=== PATIENT | male | born 1950 | race Caucasian/White ===

== ENCOUNTER 2018-03-08 11:34 | Outpatient (CLI) | payer MEDICARE, OTHER ==
[~2018-03-08] VITALS: Ht 175.3 cm; Wt 122.5 kg
== END 2018-03-08 12:25 ==
LOC: PREOP 11:34
PROVIDERS: ATTEND Specialist
DX: Z01.818 Encounter for other preprocedural examination (principal); H25.12 Age-related nuclear cataract, left eye

== ENCOUNTER 2018-03-10 07:22 | Day surgery (SDC) | payer MEDICARE, OTHER ==
[~2018-03-10] VITALS: Ht 175.3 cm; Wt 122.5 kg
[2018-03-10 07:30] VITALS: BP 157/82
[2018-03-10] MEDS ORDERED: TERA10CA3 PO (07:33)
[2018-03-10] MEDS ORDERED: SAXA5TAB PO (07:33)
[2018-03-10] MEDS ORDERED: GABA800T2 PO (07:33)
[2018-03-10] MEDS ORDERED: ATOR80TA76 PO (07:33)
[2018-03-10] MEDS ORDERED: GLIP5TAB13 PO (07:33)
[2018-03-10] MEDS ORDERED: LISI10TA2 PO (07:33)
[2018-03-10] MEDS ORDERED: METF850T2 PO (07:33)
[2018-03-10] MEDS ORDERED: LIDOCAINE PF 1% 2 ML AMP IR PRN (07:45)
[2018-03-10] MEDS ORDERED: EPINEPHrine INJECTION 1 MG/ML AMP INJ ONE (07:45)
[2018-03-10] MEDS ORDERED: TIMOLOL MALEATE 0.5% 5 ML (TIMOPTIC) BTL OU PRN (07:45)
[2018-03-10] MEDS ORDERED: VANCOMYCIN/BSS (COMPOUNDED) 10 MG/ML SYR OP ONE (07:45)
[2018-03-10] MEDS ORDERED: POVIDONE (BETADINE) OPHTH SOLN 5% 30 ML OP ONE (07:45)
[2018-03-10] MEDS: TETRACAINE 0.5% OPHTH SOLN 4 ML BTL (SINGLE DOSE ONLY) OU PRN ×4 (07:46→07:56)
[2018-03-10] MEDS: CYCLOPENTOLATE 1% (CYCLOGYL) 2 ML DROPS OP SCH ×3 (07:49→07:56)
[2018-03-10] MEDS: PHENYLEPHRINE 10% OPHTH (NEO-SYN) 5 ML BTL OU SCH ×3 (07:49→07:56)
--- NOTE | 2018-03-10 08:19 | Ophthalmologist Pre-Op Note ---
Pre-Operative Progress Note H&P Reviewed The H&P was reviewed, patient examined and no changes noted. Date H&P Reviewed: Mar 10, 2018 Time H&P Reviewed: 08:19 Pre-Op Dx Cataract, Left Eye EDER BURGER MD Mar 10, 2018 08:19
--- NOTE | 2018-03-10 08:43 | Ophthalmology Operative Report ---
Cataract removal/placement IOL PREOPERATIVE DIAGNOSIS: Cataract Left Eye POSTOPERATIVE DIAGNOSIS: Cataract Left Eye PROCEDURE: Cataract removal and placement of posterior chamber implant, left eye SURGEON: Gokul Burger ANESTHESIA: Topical with sedation COMPLICATIONS: None ESTIMATED BLOOD LOSS: Minimal DESCRIPTION OF PROCEDURE: After proper informed consent was obtained, the patient, a 67 male, was taken to the Operating Room and the left eye was anesthetized with tetracaine. The left eye was then prepped and draped in the usual manner. A wire lid speculum was placed. A paracentesis was made at the left hand position. Preservative free lidocaine was injected into the anterior chamber followed by viscoelastic. A clear corneal incision was made in the temporal position. A capsulorrhexis was preformed and the central nuclear and cortical material were removed. The posterior capsule was polished and Milind 17.5 SN6CWS IOL was placed into the capsular bag. The residual viscoelastic was aspirated and balanced saline solution was injected into the anterior chamber. 0.1 ml of Vancomycin (10mg/ 0.1ml) was injected into the anterior chamber. The wound was checked and found to be water tight. The patient tolerated the procedure well without complications. GOKUL BURGER MD Mar 10, 2018 08:43
[2018-03-10 09:00] VITALS: BP 139/68
--- NOTE | 2018-03-20 13:05 | Progress Note-Standard ---
Standard Progress Note Progress Notes/Assess & Plan Date Seen by Provider: Mar 10, 2018 Time Seen by Provider: 07:36 Progress/Assessment & Plan Addendum to anesthesia note ASA Class 3 THOMAS LA[place] DO Mar 20, 2018 13:04
== END 2018-03-10 09:00 | disposition home or self-care (01) ==
LOC: SDC 07:22
PROVIDERS: ATTEND Specialist
DX: H52.12 Myopia, left eye (principal); E11.9 Type 2 diabetes mellitus without complications; G47.33 Obstructive sleep apnea (adult) (pediatric); I10 Essential (primary) hypertension; E78.5 Hyperlipidemia, unspecified; Z79.84 Long term (current) use of oral hypoglycemic drugs; Z79.899 Other long term (current) drug therapy
CPT/HCPCS: 82962

== ENCOUNTER 2018-03-15 12:00 | Outpatient (CLI) | payer MEDICARE ==
[~2018-03-15] VITALS: Ht 175.3 cm; Wt 122.5 kg
[~2018-03-15 12:00] MED LIST: ATOR80TA76 PO; GABA800T2 PO; GLIP5TAB13 PO; LISI10TA2 PO; METF850T2 PO; SAXA5TAB PO; TERA10CA3 PO
== END 2018-03-15 14:01 ==
LOC: PREOP 12:00
PROVIDERS: ATTEND Specialist
DX: Z01.818 Encounter for other preprocedural examination (principal)

== ENCOUNTER 2018-03-17 06:53 | Day surgery (SDC) | payer MEDICARE, OTHER ==
--- NOTE | 2018-03-10 13:47 | Anesthesia-General Post-Op ---
MAC Patient Condition Mental Status/LOC: Same as Preop Cardiovascular: Satisfactory Nausea/Vomiting: Absent Respiratory: Satisfactory Pain: Controlled Complications: Absent Post Op Complications Complications None Follow Up Care/Instructions Patient Instructions None needed. Anesthesiology Discharge Order Discharge Order Patient is doing well, no complaints, stable vital signs, no apparent adverse anesthesia problems. No complications reported per nursing. ABHINAV THOMPSON CRNA Mar 10, 2018 13:47
[~2018-03-17] VITALS: Ht 175.3 cm; Wt 122.5 kg
[~2018-03-17 06:53] MED LIST changes: +CYCLOPENTOLATE 1% (CYCLOGYL) 2 ML DROPS OP SCH; +EPINEPHrine INJECTION 1 MG/ML AMP INJ ONE; +LIDOCAINE PF 1% 2 ML AMP IR PRN; +MIDAZOLAM 2 MG/2 ML (VERSED) VIAL ONE; +PHENYLEPHRINE 10% OPHTH (NEO-SYN) 5 ML BTL OU SCH; +POVIDONE (BETADINE) OPHTH SOLN 5% 30 ML OP ONE; +TETRACAINE 0.5% OPHTH SOLN 4 ML BTL (SINGLE DOSE ONLY) OU PRN; +TIMOLOL MALEATE 0.5% 5 ML (TIMOPTIC) BTL OU PRN; +VANCOMYCIN/BSS (COMPOUNDED) 10 MG/ML SYR OP ONE
[2018-03-17] MEDS ORDERED: TIMOLOL MALEATE 0.5% 5 ML (TIMOPTIC) BTL OU PRN (07:00)
[2018-03-17] MEDS ORDERED: VANCOMYCIN/BSS (COMPOUNDED) 10 MG/ML SYR OP ONE (07:00)
[2018-03-17] MEDS ORDERED: POVIDONE (BETADINE) OPHTH SOLN 5% 30 ML OP ONE (07:00)
[2018-03-17] MEDS ORDERED: LIDOCAINE PF 1% 2 ML AMP IR PRN (07:00)
[2018-03-17] MEDS ORDERED: EPINEPHrine INJECTION 1 MG/ML AMP INJ ONE (07:00)
[2018-03-17] MEDS: TETRACAINE 0.5% OPHTH SOLN 4 ML BTL (SINGLE DOSE ONLY) OU PRN ×4 (07:07→07:31)
[2018-03-17 07:09] VITALS: BP 145/76
[2018-03-17] MEDS: CYCLOPENTOLATE 1% (CYCLOGYL) 2 ML DROPS OP SCH ×3 (07:17→07:31)
[2018-03-17] MEDS: PHENYLEPHRINE 10% OPHTH (NEO-SYN) 5 ML BTL OU SCH ×3 (07:17→07:31)
--- NOTE | 2018-03-17 07:57 | Ophthalmologist Pre-Op Note ---
Pre-Operative Progress Note H&P Reviewed The H&P was reviewed, patient examined and no changes noted. Date H&P Reviewed: Mar 17, 2018 Time H&P Reviewed: 07:57 Pre-Op Dx Cataract, Right Eye EDER BURGER MD Mar 17, 2018 07:57
[2018-03-17] MEDS ORDERED: MIDAZOLAM 2 MG/2 ML (VERSED) VIAL ONE (08:02)
--- NOTE | 2018-03-17 08:21 | Ophthalmology Operative Report ---
Cataract removal/placement IOL PREOPERATIVE DIAGNOSIS: Cataract Right Eye POSTOPERATIVE DIAGNOSIS: Cataract Right Eye PROCEDURE: Cataract removal and placement of posterior chamber implant, right eye SURGEON: Gokul Burger ANESTHESIA: Topical with sedation COMPLICATIONS: None ESTIMATED BLOOD LOSS: Minimal DESCRIPTION OF PROCEDURE: After proper informed consent was obtained, the patient, a 67 male, was taken to the Operating Room and the right eye was anesthetized with tetracaine. The right eye was then prepped and draped in the usual manner. A wire lid speculum was placed. A paracentesis was made at the left hand position. Preservative free lidocaine was injected into the anterior chamber followed by viscoelastic. A clear corneal incision was made in the temporal position. A capsulorrhexis was preformed and the central nuclear and cortical material were removed. The posterior capsule was polished and Milind 18.0 SN6CWS IOL was placed into the capsular bag. The residual viscoelastic was aspirated and balanced saline solution was injected into the anterior chamber. 0.1ml of Vancomycin (1mg/0.1ml ) was injected into the anterior chamber. The wound was checked and found to be water tight. The patient tolerated the procedure well without complications. GOKUL BURGER MD Mar 17, 2018 08:21
[2018-03-17 08:34] VITALS: BP 140/87
--- NOTE | 2018-03-17 10:31 | Anesthesia-General Post-Op ---
MAC Patient Condition Mental Status/LOC: Same as Preop Cardiovascular: Satisfactory Nausea/Vomiting: Absent Respiratory: Satisfactory Pain: Controlled Complications: Absent Post Op Complications Complications None Follow Up Care/Instructions Patient Instructions None needed. Anesthesiology Discharge Order Discharge Order Patient is doing well, no complaints, stable vital signs, no apparent adverse anesthesia problems. No complications reported per nursing. SYDNEE THOMSON CRNA Mar 17, 2018 10:31
== END 2018-03-17 08:34 | disposition home or self-care (01) ==
LOC: SDC 06:53
PROVIDERS: ATTEND Specialist
DX: E11.36 Type 2 diabetes mellitus with diabetic cataract (principal); E11.42 Type 2 diabetes mellitus with diabetic polyneuropathy; I10 Essential (primary) hypertension; G47.33 Obstructive sleep apnea (adult) (pediatric); Z79.84 Long term (current) use of oral hypoglycemic drugs; Z79.899 Other long term (current) drug therapy
CPT/HCPCS: 82962